=== PATIENT | male | born 1940 | race Caucasian/White ===

== ENCOUNTER 2019-04-13 10:24 | Emergency (ER) | payer MEDICARE ==
[2019-04-13] MEDS ORDERED: Morphine 4 MG/ML VIAL ONE (11:02)
--- NOTE | 2019-04-13 11:32 | RAD ---
SINGLE VIEW OF CHEST AND LEFT RIB SERIES: Date: 04/13/19 COMPARISON: None. HISTORY: Left rib pain after fall. FINDINGS: A single view of the chest and 3 views of the left ribs show a normal sized cardiomediastinal silhoue tte. There is no evidence of consolidation, mass, or pleural effusion. No displaced left rib fractures are seen. No underlying pleural thickening or pneumothorax seen. IMPRESSION: 1. No evidence of displaced left rib fracture. 2. No evidence of acute cardiopulmonary disease. POS: [facility]
[2019-04-13] MEDS ORDERED: Morphine 2 MG/ML SYRINGE ONE (11:56)
[2019-04-13] MEDS ORDERED: Naproxen 500 MG TAB ONE (11:56)
== END 2019-04-13 12:00 | disposition home or self-care (01) ==
LOC: MADERS 10:24
DX: S29.011A Strain of muscle and tendon of front wall of thorax, initial encounter (principal); I25.2 Old myocardial infarction; I10 Essential (primary) hypertension; E11.9 Type 2 diabetes mellitus without complications; Z79.4 Long term (current) use of insulin; Z79.82 Long term (current) use of aspirin; X58.XXXA Exposure to other specified factors, initial encounter
CPT/HCPCS: 96372; J2270